=== PATIENT | male | born 1970 | race Asian ===

== ENCOUNTER 2017-04-03 11:15 | Emergency (ER) | payer OTHER ==
[~2017-04-03] VITALS: Ht 172.7 cm; Wt 105.0 kg
[2017-04-03 11:21] VITALS: TEMP 37; Ht 172.7 cm; Wt 105.0 kg
[2017-04-03 11:24] VITALS: O2SAT 100
[2017-04-03] MEDS ORDERED: SODIUM CHLORIDE 0.9% 1000ML 1,000 ML IV STA (11:55)
[2017-04-03 11:56] LABS: BASO % 0.5 %; BASO ABS # 0.03 K/uL (0-0.2); COMPLETE YES; EOS % 1.3 %; HEMATOCRIT 45.6 % (42-52); IG% 0.3 %; LYMPH % 25.2 %; LYMPH ABS # 1.53 K/uL (1.2-3.4); MEAN CELL VOLUME 90.5 fL (80-100); MEAN CORPUSCULAR HGB CONC 34.2 g/dl (32-36); MEAN PLATELET VOLUME 9.6 fL (7.4-10.4); MONO % 5.9 %; NEUT % 66.8 %; PLATELET COUNT 240 K/uL (130-400); RED BLOOD COUNT 5.04 M/uL (4.7-6.1); WHITE BLOOD COUNT 6.06 K/uL (4.8-10.8)
[2017-04-03 12:07] LABS: BUN/CREATININE RATIO 9.8 (10-20); CREATININE 1.2 mg/dl (0.60-1.40); POTASSIUM 3.7 mmol/L (3.5-5.1)
[2017-04-03 12:09] LABS: ALB/GLOB RATIO 1.3 (0.9-2)
--- NOTE | 2017-04-03 12:28 | EMERGENCY ROOM VISIT NOTE ---
History Report prepared by Annmarie: Sagrario Shearer Under the Supervision of: Dr. Leonides Vinson M.D. First contact with patient: 11:48 Chief Complaint: OTHER COMPLAINT Stated Complaint: ILLNESS History of Present Illness The patient is a 46 year old male who presents to the Emergency Room with complaints of persistent lung heaviness starting this morning. He came to the ED by EMS. He has a history of asthma and was started on a new inhaler yesterday. He had an appointment with pulmonology yesterday who switched him from Pulmicort to [place]. He took 2 puffs last night and felt fine. This morning he took 2 puffs and started to feel a heaviness in his lungs. He started to feel uneasy. He had a tingling in his hands. He was driving out of town when he felt too unwell to continue. The heaviness in his lungs continued and the tingling in his hands worsened. He also started to feel something in his chest. He was breathing heavily, but it was unlike his asthma. He was hyperventilating. He felt weak and currently feels fatigued. He denies any LOC, but feels he might have gotten close. He denies any cough, cold, congestion, vomiting, or diarrhea in the past few days. He has a history of hypertension. Source of History: patient Onset: this morning Position: other (lung) Quality: other (heaviness) Timing: other (persistent) Associated Symptoms: + SOB, + fatigue, + weakness, No LOC, No cough, No diarrhea, No vomiting Note: Pt reports hand tingling, chest sensation. Pt denies congestion. Review of Systems See HPI for pertinent positives & negatives. A total of 10 systems reviewed and were otherwise negative. Past Medical & Surgical Medical Problems: (1) Hypertension Family History No pertinent family history stated. Social History Smoking Status: Never Smoker Marital Status: Housing Status: lives with family Occupation Status: employed Current/Historical Medications Scheduled Budesonide (Pulmicort Flexhaler), 1 PUFF INH UD Felodipine (Felodipine ER), 10 MG PO DAILY Irbesartan (Irbesartan), 150 MG PO DAILY Triamcinolone Acetonide (Nasal (Nasacort Allergy 24Hr), 1 SPRAYS ROE UD Scheduled PRN Lorazepam (Ativan), 1 MG PO Q6H PRN for Anxiety/Agitation [Bricanyl], 1 PUFF INH UD PRN for ASTHMA ATTACK Allergies Coded Allergies: Shellfish (Verified Allergy, Intermediate, rash, 04/03/17) Uncoded Allergies: SUNFLOWER SEEDS (Allergy, Intermediate, rash, 04/03/17) Physical Exam Vital Signs Date Time Temp Pulse Resp B/P Pulse Ox O2 Delivery O2 Flow Rate FiO2 04/03/17 14:22 72 18 147/98 98 Room Air 04/03/17 13:15 68 04/03/17 13:04 74 151/95 154/103 04/03/17 12:51 74 18 178/127 99 Room Air 04/03/17 12:04 71 18 161/116 100 Room Air 04/03/17 11:24 100 Room Air 04/03/17 11:21 37.0 75 18 175/116 100 Room Air 04/03/17 11:20 78 Physical Exam GENERAL: Patient is in no acute distress. HEENT: No acute trauma, normocephalic atraumatic, mucous membranes moist, no nasal congestion, no scleral icterus. NECK: No stridor, no adenopathy, no meningismus, trachea is midline. LUNGS: Clear to auscultation bilaterally, no wheeze, no rhonchi, breath sounds equal. HEART: Without murmurs gallops or rubs, regular rate and rhythm. ABDOMEN: Soft, nontender, bowel sounds positive, no hernias, no peritonitis. EXTREMITIES: No cyanosis or edema, full range of motion of all the joints without pain or difficulty, no signs for acute trauma. NEUROLOGIC: Oriented x 3, no acute motor or sensory deficits, no focal weakness. SKIN: No rash, no jaundice, no diaphoresis. Medical Decision & Procedures ER Provider Diagnostic Interpretation: X-ray results as stated below per interpretation by me and the radiologist: CHEST ONE VIEW PORTABLE CLINICAL HISTORY: sob COMPARISON STUDY: No previous studies for comparison. FINDINGS: Mild cardia megaly. Lungs are clear. Diaphragms are smooth. IMPRESSION: Mild cardia megaly. Otherwise negative study Electronically signed by: Viraj Bernard M.D. 04/03/2017 12:33 PM Dictated Date/Time: 04/03/2017 12:33 PM Laboratory Results 04/03/17 11:20 Red Blood Count 5.04, Mean Corpuscular Volume 90.5, Mean Corpuscular Hemoglobin 31.0, Mean Corpuscular Hemoglobin Concent 34.2, Mean Platelet Volume 9.6, Neutrophils (%) (Auto) 66.8, Lymphocytes (%) (Auto) 25.2, Monocytes (%) (Auto) 5.9, Eosinophils (%) (Auto) 1.3, Basophils (%) (Auto) 0.5, Neutrophils # (Auto) 4.04, Lymphocytes # (Auto) 1.53, Monocytes # (Auto) 0.36, Eosinophils # (Auto) 0.08, Basophils # (Auto) 0.03 04/03/17 11:20 Test 04/03/17 11:20 04/03/17 13:51 White Blood Count 6.06 K/uL (4.8-10.8) Red Blood Count 5.04 M/uL (4.7-6.1) Hemoglobin 15.6 g/dL (14.0-18.0) Hematocrit 45.6 % (42-52) Mean Corpuscular Volume 90.5 fL (80-100) Mean Corpuscular Hemoglobin 31.0 pg (25-34) Mean Corpuscular Hemoglobin Concent 34.2 g/dl (32-36) Platelet Count 240 K/uL (130-400) Mean Platelet Volume 9.6 fL (7.4-10.4) Neutrophils (%) (Auto) 66.8 % Lymphocytes (%) (Auto) 25.2 % Monocytes (%) (Auto) 5.9 % Eosinophils (%) (Auto) 1.3 % Basophils (%) (Auto) 0.5 % Neutrophils # (Auto) 4.04 K/uL (1.4-6.5) Lymphocytes # (Auto) 1.53 K/uL (1.2-3.4) Monocytes # (Auto) 0.36 K/uL (0.11-0.59) Eosinophils # (Auto) 0.08 K/uL (0-0.5) Basophils # (Auto) 0.03 K/uL (0-0.2) RDW Standard Deviation 41.8 fL (36.4-46.3) RDW Coefficient of Variation 12.7 % (11.5-14.5) Immature Granulocyte % (Auto) 0.3 % Immature Granulocyte # (Auto) 0.02 K/uL (0.00-0.02) Anion Gap 11.0 mmol/L (3-11) Est Creatinine Clear Calc Drug Dose 89.4 ml/min Estimated GFR () 83.0 Estimated GFR (Non- 71.6 BUN/Creatinine Ratio 9.8 (10-20) Calcium Level 9.0 mg/dl (8.5-10.1) Magnesium Level 2.3 mg/dl (1.8-2.4) Total Bilirubin 0.2 mg/dl (0.2-1) Aspartate Amino Transf (AST/SGOT) 25 U/L (15-37) Alanine Aminotransferase (ALT/SGPT) 57 U/L (12-78) Alkaline Phosphatase 101 U/L (45-117) Total Protein 7.5 gm/dl (6.4-8.2) Albumin 4.2 gm/dl (3.4-5.0) Globulin 3.3 gm/dl (2.5-4.0) Albumin/Globulin Ratio 1.3 (0.9-2) Thyroid Stimulating Hormone (TSH) 0.724 uIu/ml (0.300-4.500) Chemistry Specimen Hemolysis Bedside Troponin I 0.000 ng/ml (0-0.045) Laboratory results reviewed by me. Medications Administered Medications (Trade) Dose Ordered Sig/Pablo Route Start Time Stop Time Status Last Admin Dose Admin Sodium Chloride (Nss 1000ml) 1,000 ml @ 999 mls/hr Q1H1M STAT IV 04/03/17 11:55 04/03/17 12:55 DC 04/03/17 12:03 999 MLS/HR ECG Indication: SOB/dyspnea Rate (beats per minute): 72 Rhythm: normal sinus Findings: no acute ischemic change, no ectopy ED Course 1150: The patient was evaluated in room C6. A complete history and physical exam was performed. 1155: NSS 1000 ml @ 999 mls/hr IV. 1354: I reevaluated the patient. He is feeling great and looking forward to going home if his second troponin is negative. 1419: I reevaluated the patient. I discussed results and discharge instructions : he verbalized understanding and agreement. The patient is ready for discharge. Medical Decision Differential diagnoses considered include medication reaction, dysrhythmia, cardiac ischemia, electrolyte imbalance, anemia, hyperventilation, anxiety, exacerbation of asthma. There is no leukocytosis or concerning anemia. No significant electrolyte abnormality, kidney failure or hepatitis. EKG shows a normal sinus rhythm, no acute ischemia. Cardiac enzyme testing 2 is not consistent with acute cardiac injury. The patient appears to be in a euthyroid state. Chest x-ray shows no mediastinal widening, pneumonia or pneumothorax. On exam, the patient was not toxic. He was not febrile. His neurologic exam was nonfocal. The patient received IV saline, his blood pressure has come down, he feels back to baseline and is currently without complaints. He states his blood pressure is typically 120/70 or 80. The patient likely had a reaction to his new inhaler. He will stop this. I do think there was some anxiety to his presentation as well. The patient is going to go back to using Pulmicort. He will return here for worsening symptoms. [place] Drug Monitoring Program Search Results: patient reviewed within database, no issues identified Impression Primary Impression: Near syncope Additional Impressions: Hyperventilation Medication reaction Scribe Attestation The scribe's documentation has been prepared under my direction and personally reviewed by me in its entirety. I confirm that the note above accurately reflects all work, treatment, procedures, and medical decision making performed by me. Departure Information Dispostion Home / Self-Care Prescriptions Lorazepam (ATIVAN) 1 Mg Tab 1 MG PO Q6H Y for Anxiety/Agitation, #5 TAB Prov: Leonides Vinson M.D. 04/03/17 Referrals No Doctor, Assigned Forms HOME CARE DOCUMENTATION FORM, IMPORTANT VISIT INFORMATION Patient Instructions [facility] Additional Instructions stay well hydrated rest today stop the new asthma med and go back to the pulmacort may use ativan 1 tab as needed for anxiety or panic see cristian perez for a recheck later this week return if worsening all testing today was ok Problem Qualifiers
--- NOTE | 2017-04-03 12:35 | DIAGNOSTIC IMAGING REPORT ---
CHEST ONE VIEW PORTABLE CLINICAL HISTORY: sob COMPARISON STUDY: No previous studies for comparison. FINDINGS: Mild cardia megaly. Lungs are clear. Diaphragms are smooth. IMPRESSION: Mild cardia megaly. Otherwise negative study Electronically signed by: Viraj Bernard M.D. 04/03/2017 12:33 PM Dictated Date/Time: 04/03/2017 12:33 PM
[2017-04-03 12:37] LABS: THYROID STIMULATING HORMONE 0.724 uIu/ml (0.300-4.500)
[2017-04-03 12:44] LABS: MAGNESIUM 2.3 mg/dl (1.8-2.4)
[2017-04-03] MEDS ORDERED: PLN/10 PO (13:19)
[2017-04-03] MEDS ORDERED: IRBE1TAB48 PO (13:19)
[2017-04-03] MEDS ORDERED: [UNRECOGNIZED DRUG - OTHER] INH (13:19)
[2017-04-03] MEDS ORDERED: PLMIN90 INH (13:19)
[2017-04-03] MEDS ORDERED: TRIA1SPR4 NAE (13:21)
[2017-04-03] MEDS ORDERED: ATV/1 PO (14:18)
[2017-04-03 14:22] VITALS: BP 147/98; PULSE 72; O2SAT 98
== END 2017-04-03 14:37 | disposition home or self-care (01) ==
LOC: C.EDC 11:20
DX: R55 Syncope and collapse (principal); R06.4 Hyperventilation; T48.6X5A Adverse effect of antiasthmatics, initial encounter; X58.XXXA Exposure to other specified factors, initial encounter; I10 Essential (primary) hypertension; Z79.899 Other long term (current) drug therapy